=== PATIENT | male | born 1985 ===

== ENCOUNTER 2017-06-17 08:46 | Emergency (ER) | payer MEDICAID ==
[2017-06-17 08:51] VITALS: PULSE 103; RESP 16; TEMP 99; O2SAT 93
[2017-06-17 08:52] VITALS: BP 143/76
[2017-06-17] MEDS ORDERED: chlordiazePOXIDE 25 MG CAP PO ONE (09:34)
--- NOTE | 2017-06-17 09:48 | EDPHY ---
H & P Stated Complaint: ETOH withdrawl symptoms Time Seen by Provider: 06/17/17 09:09 HPI/ROS: CHIEF COMPLAINT: alcohol withdrawal HISTORY OF PRESENT ILLNESS: 32-year-old male presents emergency department with a family member requesting Librium for alcohol withdrawal detox. Patient was patient at [facility] last night and [facility] this [facility] to [facility] without any medications. They sent him to the emergency department to receive a prescription for Librium. Patient reports he drinks 2 pt daily, last drink was yesterday. He reports nausea. 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 Patient denies auditory or visual hallucinations, no chest pain or shortness of breath. REVIEW OF SYSTEMS: A comprehensive 10 point review of systems is otherwise negative aside from elements mentioned in the history of present illness. Source: Patient, Family Exam Limitations: Clinical condition - Personal History Current Tetanus/Diphtheria Vaccine: Yes Current Tetanus Diphtheria and Acellular Pertussis (TDAP): Yes - Medical/Surgical History Hx Asthma: No Hx Chronic Respiratory Disease: No Hx Diabetes: No Hx Cardiac Disease: No Hx Renal Disease: No Hx Cirrhosis: No Hx Alcoholism: Yes Hx HIV/AIDS: No Hx Splenectomy or Spleen Trauma: No Other PMH: PMH- EPILEPSY, TBI (2004), ETOH. PSH- SPINAL FUSION - Social History Smoking Status: Never smoked - Physical Exam Exam: Physical Exam Gen: Asleep, easily aroused HEENT: PERRL, dry mucous membranes NECK: no meningismus CV: regular rate and regular rhythm PULM: CTAB, no wheezes ABDOMEN: soft, non tender to palpation, BS present BACK: No CVA tenderness NEURO: No facial asymmetry, moves all extremities, follows commands, mild tongue fasciculations EXTREMITIES: normal appearing SKIN: Superficial abrasion to bridge of nose PSYCH: answers questions appropriately. Constitutional: Initial Vital Signs Temperature (C) 37.2 C 06/17/17 08:50 Heart Rate 103 H 06/17/17 08:50 Respiratory Rate 16 06/17/17 08:50 Blood Pressure 143/76 H 06/17/17 08:50 O2 Sat (%) 93 06/17/17 08:50 O2 Delivery Mode Room Air Allergies/Adverse Reactions: morphine Allergy (Verified 08/24/16 09:42) Home Medications: Medication Instructions Recorded Depakote 08/24/16 Divalproex [Depakote 500 MG (RX)] 2 tab PO BID #14 tab 08/24/16 chlordiazePOXIDE [Librium 25 mg 50 mg PO Q6 PRN 3 Days 06/17/17 (*)] Medical Decision Making ED Course/Re-evaluation: 32-year-old male presents with alcohol withdrawals. He was [facility] the [facility] to receive a prescription for Librium. Patient is here with a family member. They will fill his prescription for Librium and bring him to the [facility]. The patient is comfortable with this plan. He has no evidence of delirium tremens. He is ambulatory without assistance and has normal vital signs. Differential Diagnosis: Diagnosis considered but not limited to alcohol withdrawal, delirium tremens, alcohol dependence, polysubstance abuse Departure - Departure Disposition: Home, Routine, Self-Care Clinical Impression: Alcohol withdrawal Qualifiers: Complication of substance-induced condition: uncomplicated Qualified Code(s): F10.230 - Alcohol dependence with withdrawal, uncomplicated Condition: Good Instructions: Alcohol Withdrawal (ED), Alcohol Dependence (ED) Additional Instructions: Go to the [facility], take the Librium as prescribed. Stop drinking alcohol. Referrals: Fabien Del Cid MD [Primary Care Provider] - As per Instructions Prescriptions: chlordiazePOXIDE [Librium 25 mg (*)] 50 mg PO Q6 PRN 3 Days PRN Reason: Ciwa Score 6 - 11
== END 2017-06-17 10:00 | disposition home or self-care (01) ==
DX: F10.230 Alcohol dependence with withdrawal, uncomplicated (principal)